=== PATIENT | male | born 1965 | race Caucasian/White ===

== ENCOUNTER 2018-05-31 10:39 | Emergency (ER) | payer MEDICAID ==
[~2018-05-31] VITALS: Ht 175.3 cm; Wt 118.2 kg
[2018-05-31 10:45] VITALS: Ht 175.3 cm; Wt 118.2 kg
[2018-05-31] MEDS ORDERED: DOXYCYCLINE HY100 M2 PO (11:30)
[2018-05-31] MEDS ORDERED: NORCO 7.5/325 T1 TA1 PO (11:30)
[2018-05-31 12:10] VITALS: BP 125/82
== END 2018-05-31 12:10 | disposition home or self-care (01) ==
LOC: D.ER 10:39
DX: N50.812 Left testicular pain (principal); N50.811 Right testicular pain; F17.200 Nicotine dependence, unspecified, uncomplicated